=== PATIENT | female | born 1980 | race Caucasian/White ===

== ENCOUNTER → 2021-07-04 | Outpatient (CLI) | payer OTHER ==
[2021-07-04 16:15] LABS: Source, Urine Clean Catch
[2021-07-04 19:00] LABS: Bilirubin, Urine Neg (Neg); Blood, Urine 5+ (Neg); Glucose Qualitative, Urine Neg (Neg); Ketones, Urine Neg (Neg); Leukocyte Esterase, Urine 3+ (Neg); Nitrite, Urine Neg (Neg); Protein, Urine 2+ (Neg); Urobilinogen, Urine NORM (Normal)
[2021-07-04 19:13] LABS: Appearance, Urine Cloudy (Clear); Bacteria Many /hpf; Color, Urine Pale Yellow (P-Yellow); Red Blood Cells, Urine 25-50 /hpf (0-2); Squamous Epithelial Cells Few /hpf (Few)
[2021-07-04 19:14] LABS: Amorphous Heavy (0-Heavy); Calcium Oxalate Crystals Rare /hpf; Mucus Light (0-Heavy)
== END ==
LOC: LAB SHORT 16:13 → LAB 16:13
PROVIDERS: Obstetrics & Gynecology
DX: R30.9 Painful micturition, unspecified (principal)
CPT/HCPCS: 81001; 87086

== ENCOUNTER 2021-08-29 11:49 | Day surgery (SDC) | payer OTHER ==
[~2021-08-29] VITALS: Ht 165.1 cm; Wt 86.7 kg
[2021-08-29] MEDS ORDERED: LEVSOD112 (13:26)
[2021-08-29] MEDS ORDERED: LEVSOD112 PO (13:27)
[2021-09-04 14:10] LABS: HPV 16 Negative (Negative); HPV 18 Negative (Negative)
== END 2021-08-29 15:15 | disposition home or self-care (01) ==
LOC: ORSCSDS 11:49
PROVIDERS: Obstetrics & Gynecology
PROC: [UNRECOGNIZED PROCEDURE] (principal; 2021-08-29 13:30)
PROC: 0UJD7ZZ Inspection of Uterus and Cervix, Via Natural or Artificial Opening (ICD-10-PCS; principal; 2021-08-29 13:30)
PROC: [UNRECOGNIZED PROCEDURE] (principal; 2021-08-29 13:30)
DX: N92.0 Excessive and frequent menstruation with regular cycle (principal); N94.2 Vaginismus; N85.00 Endometrial hyperplasia, unspecified; E66.9 Obesity, unspecified; D64.9 Anemia, unspecified; E03.9 Hypothyroidism, unspecified; F41.9 Anxiety disorder, unspecified; E78.5 Hyperlipidemia, unspecified; E06.3 Autoimmune thyroiditis; Z86.16 Personal history of COVID-19; Z68.31 Body mass index [BMI] 31.0-31.9, adult; Z79.899 Other long term (current) drug therapy
CPT/HCPCS: 87625; G0123; J1885; J2405; J2704; J2765; J7120

== ENCOUNTER 2024-07-03 08:37 | Day surgery (SDC) | payer OTHER ==
[~2024-07-03 08:37] MED LIST: LEVSOD112; LEVSOD112 PO
== END 2024-07-03 23:00 | disposition home or self-care (01) ==
LOC: MOI US 08:37
DX: C50.211 Malignant neoplasm of upper-inner quadrant of right female breast (principal)
CPT/HCPCS: 19285; 77065; A4648

== ENCOUNTER 2024-07-16 08:56 | Day surgery (SDC) | payer OTHER ==
[~2024-07-16] VITALS: Ht 165.1 cm; Wt 91.6 kg
[2024-07-16] MEDS ORDERED: CeFAZolin Sodium 2,000 MG VIAL ONE (09:10)
[2024-07-16] MEDS ORDERED: propofoL 20 ML IV ONE ×2 (09:22→10:12)
[2024-07-16] MEDS ORDERED: Methylene Blue 1% 100 MG/10 ML VIAL ONE (09:49)
[2024-07-16] MEDS ORDERED: Lactated Ringer's 1,000 ML IV ONE (09:52)
--- NOTE | 2024-07-16 10:04 | NUR ---
07/16/24 1004 Malia Gotti BREAST BINDER OF APPROPRIATE SIZE AT THE HEAD OF THE BED FOR POST OP.
[2024-07-16] MEDS ORDERED: FentaNYL Citrate 50 MCG/ML 2 ML Injection ONE ×2 (10:05→12:25)
[2024-07-16] MEDS ORDERED: Bupivacaine 0.5% HCl 5 MG/ML 30MLVIAL XX ONE (10:33)
--- NOTE | 2024-07-16 11:31 | NUR ---
07/16/24 1131 Calista Amaro FROM IMAGING CALLED DR. CELAYA CONFIRMED SPECIMEN HAS CLIPS AND PILAR IN PLACE. DR. NAJERA NOTIFIED
--- NOTE | 2024-07-16 12:37 | NUR ---
07/16/24 Abraham Wilcox FENTANYL 12.5MCG IV GIVEN AT 1235 FOR 9/10 RIGHT BREAST PAIN.
[2024-07-16] MEDS ORDERED: HYDROcodone 5-APAP 325 TAB ONE (13:09)
[2024-07-16 13:20] VITALS: BP 125/96
== END 2024-07-16 13:55 | disposition home or self-care (01) ==
LOC: ORSCSDS 08:56
PROVIDERS: Surgery
PROC: 0HBT0ZZ Excision of Right Breast, Open Approach (ICD-10-PCS; principal; 2024-07-16 10:00)
PROC: 07B50ZX Excision of Right Axillary Lymphatic, Open Approach, Diagnostic (ICD-10-PCS; principal; 2024-07-16 10:00)
DX: C50.211 Malignant neoplasm of upper-inner quadrant of right female breast (principal); Z17.0 Estrogen receptor positive status [ER+]; Z17.21 Progesterone receptor positive status; Z17.32 Human epidermal growth factor receptor 2 negative status; Z80.3 Family history of malignant neoplasm of breast; F84.0 Autistic disorder; E06.3 Autoimmune thyroiditis; E78.00 Pure hypercholesterolemia, unspecified; E78.2 Mixed hyperlipidemia; E66.9 Obesity, unspecified; Z68.33 Body mass index [BMI] 33.0-33.9, adult; Z79.899 Other long term (current) drug therapy
CPT/HCPCS: 38792; 76098; 88307; 88342; A9270; A9520; J0690; J2704; J3010; J7120; Q9968